=== PATIENT | female | born 1980 | race American Indian/Alaskan Native ===

== ENCOUNTER 2016-09-02 07:53 | Emergency (ER) | payer BC ==
[2016-09-02 08:24] LABS: Basophils % (Auto) 0.7 % (0.0-1.8); Eosinophils % (Auto) 0.9 % (0.0-4.3); Hematocrit 29.2 % (30.3-42.9); Hemoglobin 8.8 gm/dl (10.1-14.3); Mean Corpuscular HGB Conc 30 % (30-34); Platelet Count 229 K/mm3 (140-440); Red Cell Distribution Width 19.5 % (13.2-15.2); White Blood Count 4.5 K/mm3 (4.5-11.0)
[2016-09-02 08:36] LABS: INR 1.06 (0.87-1.13)
[2016-09-02 08:37] LABS: Partial Thromboplastin Time 27.1 Sec. (24.2-36.6)
[2016-09-02 08:40] LABS: Mean Corpuscular Hemoglobin 20 pg (28-32); Mean Corpuscular Volume 65 fl (79-97)
[2016-09-02 08:41] LABS: Anion Gap 16 mmol/L; BUN/Creatinine Ratio 14.44; Blood Urea Nitrogen 13 mg/dL (7-17); Calcium 8.5 mg/dL (8.4-10.2); Carbon Dioxide 21 mmol/L (22-30); Chloride 104.3 mmol/L (98-107); Glucose 99 mg/dL (65-100); Potassium 4.3 mmol/L (3.6-5.0); Sodium 137 mmol/L (137-145)
--- NOTE | 2016-09-02 10:16 | Emergency Department Report ---
HPI - General Chief Complaint: Extremity Problem,Nontraumatic Time Seen by Provider: 09/02/16 09:23 - [facility] HPI: Room 19 The patient is a 35-year-old female presenting with a chief complaint of right lower extremity pain. She states her symptoms began 2 weeks ago with pain at the right ankle which then progressed to include the calf and eventually her right inner thigh. Patient describes pain as sharp and constant in nature. Patient denies chest pain or shortness of breath. The patient currently gives her pain a score of 8/10 Location: Right lower extremity Duration: 2 Weeks Quality: Sharp Severity:8/10 Modifying factors: [see above] Context: [see above] Mode of transportation: The patient drove herself to the emergency department and there are no visitors present ED Past Medical Hx - Past Medical History Previous Medical History?: Yes Hx Deep Vein Thrombosis: Yes Additional medical history: History of DVT -treated with Lovenox - Surgical History Hx Breast Surgery: Yes (10/20/2014) Additional Surgical History: tumceline tuck 10/20/2014 - Family History Family history: no significant - Social History Smoking Status: Never Smoker Substance Use Type: None - Medications Home Medications: Home Medications Medication Instructions Recorded Confirmed Last Taken Type Aspirin [Aspirin TAB] 325 mg PO QDAY 09/02/16 09/02/16 Unknown History Ibuprofen [Motrin 800 MG tab] 800 mg PO Q8HR PRN #20 tablet 09/02/16 Unknown Rx ED Review of Systems ROS: Stated complaint: LEG PAIN Other details as noted in HPI Comment: All other systems reviewed and negative Constitutional: denies: chills, fever Eyes: denies: eye pain, eye discharge, vision change ENT: denies: ear pain, throat pain Respiratory: denies: cough, shortness of breath, wheezing Cardiovascular: denies: chest pain, palpitations Endocrine: no symptoms reported Gastrointestinal: denies: abdominal pain, nausea, diarrhea Genitourinary: denies: urgency, dysuria, discharge Musculoskeletal: myalgia Skin: denies: rash, lesions Neurological: denies: headache, weakness, paresthesias Psychiatric: denies: anxiety, depression Hematological/Lymphatic: denies: easy bleeding, easy bruising Physical Exam - Physical Exam Vital Signs: Vital Signs 09/02/16 07:58 Temperature 98.6 F Pulse Rate 88 Respiratory 16 Rate Blood Pressure 111/82 O2 Sat by Pulse 100 Oximetry Physical Exam: GENERAL: The patient is well-developed well-nourished female lying on stretcher not appearing to be in acute distress. [] HEENT: Normocephalic. Atraumatic. Extraocular motions are intact. Patient has moist mucous membranes. NECK: Supple. Trachea midline CHEST/LUNGS: Clear to auscultation. There is no respiratory distress noted. HEART/CARDIOVASCULAR: Regular. There is no tachycardia. There is no gallop rub or murmur. ABDOMEN: Abdomen is soft, nontender. Patient has normal bowel sounds. There is no abdominal distention. SKIN: There is no rash. There is no edema. There is no diaphoresis. NEURO: The patient is awake, alert, and oriented. The patient is cooperative. The patient has normal speech MUSCULOSKELETAL: There is tenderness to palpation of the right calf. There is no evidence of acute injury. ED Course Vital Signs 09/02/16 07:58 Temperature 98.6 F Pulse Rate 88 Respiratory 16 Rate Blood Pressure 111/82 O2 Sat by Pulse 100 Oximetry - Consultations Consultation #1: 09/02/16 10:16 Vascular surgery paged 09/02/16 11:[address] Moreno and Wilman Montiel have also seen the patient- warm compresses, NSAIDs and follow-up in the office in 2 weeks ED Medical Decision Making - Lab Data Result diagrams: 09/02/16 08:12 09/02/16 08:12 - Radiology Data Radiology results: report reviewed (right lower extremity Doppler), image reviewed (right lower extremity Doppler) Right lower extremity Doppler (read by technologist)-no evidence of DVT noted in vessel/segments examined. Acute SVT noted in right GSV from approximately mid thigh towards distal calf - Differential Diagnosis DVT, SVT Critical care attestation.: If time is entered above; I have spent that time in minutes in the direct care of this critically ill patient, excluding procedure time. ED Disposition Clinical Impression: Acute superficial venous thrombosis of right lower extremity Disposition: DC-01 TO HOME OR SELFCARE Is pt being admited?: No Does the pt Need Aspirin: No Condition: Stable Instructions: Superficial Thrombophlebitis (ED) Additional Instructions: Return to the emergency department immediately should you develop worsening symptoms, fever, inability to tolerate food or liquid or any other concerns. Prescriptions: Ibuprofen [Motrin 800 MG tab] 800 mg PO Q8HR PRN #20 tablet PRN Reason: Pain Referrals: PRIMARY CARE, [Primary Care Provider] - 3-5 Days SAMM BAUTISTA MD [Staff Physician] - 09/17/16 (Dr. Bautista is a vascular surgeon. Please follow up with him for further evaluation)
[2016-09-02 11:19] VITALS: BP 128/84
[2016-09-02] MEDS ORDERED: TORADOL IM ONE (11:21)
--- NOTE | 2016-09-02 12:24 | Consultation ---
History of Present Illness - Reason for Consult Consult date: 09/02/16 right GSV SVT Requesting physician: CORBIN MELÉNDEZ - History of Present Illness 35-year-old lady presented to the ER with a few day history of right lower extremity pain at the medial location along GSV. It was a second episode for her. She also admits to history of provoked DVT about 5 years ago when she was . She has some pain and cramping when moving her right leg. Past History Past Medical History: DVT Past Surgical History: Other (liposuction, breast surgery) Social history: no significant social history, other (patient works for [employer] with [employer].) Family history: other (clotting disorder in her aunt) Medications and Allergies Allergies Allergy/AdvReac Type Severity Reaction Status Date / Time No Known Allergies Allergy Verified 09/02/16 07:57 Home Medications Medication Instructions Recorded Confirmed Last Taken Type Aspirin [Aspirin TAB] 325 mg PO QDAY 09/02/16 09/02/16 Unknown History Ibuprofen [Motrin 800 MG tab] 800 mg PO Q8HR PRN #20 tablet 09/02/16 Unknown Rx Review of Systems All systems: negative (specifically denies SOB) Musculoskeletal: muscle cramps Exam - Constitutional Vitals: Temp Pulse Resp BP Pulse Ox 98.6 F 69 16 128/84 100 09/02/16 07:58 09/02/16 11:00 09/02/16 11:30 09/02/16 11:00 09/02/16 11:00 - Extremities Extremities: pulses intact Results - Labs CBC & Chem 7: 09/02/16 08:12 09/02/16 08:12 Labs: Abnormal lab results 09/02/16 09/02/16 Range/Units 08:12 08:12 Hgb 8.8 L (10.1-14.3) gm/dl Hct 29.2 L (30.3-42.9) % MCV 65 L (79-97) fl MCH 20 L (28-32) pg RDW 19.5 H (13.2-15.2) % [place] % (Auto) 7.9 H (0.0-7.3) % Carbon Dioxide 21 L (22-30) mmol/L - Imaging and Cardiology Venous US: report reviewed (there is no DVT, there is finding all right sided greater saphenous vein SVT extending to lower thigh) Assessment and Plan 35-year-old with second episode of right greater saphenous vein SVT without erythema or purulent discharge. The treatment plan is as sets such as ibuprofen for about 10 days, apply warm compresses, follow-up in the office with repeat ultrasound in 7 days. Patient was advised to call office earlier if pain extends up closer to the groin area deficit if I extension of SVT closer to common femoral vein. Patient is also advised to continue out of bed with regular ACTIVITIES, but no strenuous physical exercises. We'll also recommend for her to see a inside wirer to check for hypercoagulable state, especially with family history of clotting disorders. At this point, there is no indication of anticoagulation. Since it is patient's second episode of superficial thrombophlebitis in the same area, she will probably need vein excision once acute phase is over.
--- NOTE | 2016-09-03 08:02 | Vascular Lab Report ---
Right Lower Extremity Venous Duplex Study: Reason for Exam: Pain of the right lower extremity. Comments on the Right: All deep veins visualized are freely compressible without evidence of internal echogenicity. Flow is spontaneous and phasic throughout. No evidence of acute or chronic thrombus is seen in any of the vessels visualized. Superficial thrombophlebitis is noted in the greater saphenous vein. Comments on the Left: A limited duplex study was done of the proximal veins of the left lower extremity. All veins visualized are freely compressible without evidence of internal echogenicity. Flow is spontaneous and phasic throughout. No evidence of acute or chronic thrombus is seen in any of the vessels visualized. Impression: No evidence of acute or chronic deep venous thrombosis in the right lower extremity. Superficial thrombophlebitis in the right lower extremity
== END 2016-09-02 11:48 | disposition home or self-care (01) ==
LOC: ED 07:53
DX: I82.401 Acute embolism and thrombosis of unspecified deep veins of right lower extremity (principal); Z79.82 Long term (current) use of aspirin
CPT/HCPCS: 36415; 80048; 84703; 85025; 85610; 85730; 93971; 96372; 99283; J1885